=== PATIENT | female | born 1955 | race Caucasian/White ===

== ENCOUNTER 2025-04-05 08:50 | Outpatient (CLI) | payer MEDICARE | END 2025-04-05 08:51 | disposition home or self-care (01) | LOC: BICMAMMO 08:50 | PROVIDERS: ATTEND Internal Medicine Hematology & Oncology | DX: C50.812 Malignant neoplasm of overlapping sites of left female breast (principal); Z79.810 Long term (current) use of selective estrogen receptor modulators (SERMs); Z79.811 Long term (current) use of aromatase inhibitors; M85.851 Other specified disorders of bone density and structure, right thigh; M85.852 Other specified disorders of bone density and structure, left thigh | CPT/HCPCS: 77080 ==